=== PATIENT | female | born 1965 | race Caucasian/White ===

== ENCOUNTER → 2016-08-11 | Outpatient (CLI) | payer OTHER ==
[~2016-08-11] VITALS: Ht 157.5 cm; Wt 72.0 kg
[~2016-08-11] MED LIST: CYMBALTA60 MG PO; DAILY VALUE1 EACH PO; Dulcolax PR; ERGOCALCIF50000 UNIT PO; LYRICA100 MG PO; NEXIUM40 MG PO; OPANA ER15 MG PO; PERCOCET 5/31 TABLET PO; PROTONIX40 MG PO; Percocet 5/325,Endoc PO; Premarin PO; ROBAXIN750 MG PO; TIZANIDINE HCL4 MG PO; Theragran PO; VITAMIN D-32000 UNI2 PO; Valium PO; Vicodin ES 7.5/750 PO; [UNRECOGNIZED DRUG - OTHER] PO; celeBREX PO
[2016-08-11 07:28] VITALS: BP 146/70
== END | disposition home or self-care (01) ==
LOC: IVINF 06-24 07:00
PROVIDERS: Internal Medicine Endocrinology, Diabetes & Metabolism
DX: E27.40 Unspecified adrenocortical insufficiency (principal)
CPT/HCPCS: 80400; 82024 90; 82533 91; 96374; J0834